=== PATIENT | male | born 1985 | race Caucasian/White ===

== ENCOUNTER 2017-05-29 09:04 | Emergency (ER) | payer OTHER ==
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
[2017-05-29] MEDS ORDERED: IBUPROFEN 600 MG TAB PO ONE ×2 (12:38→12:39)
[2017-05-29] MEDS ORDERED: HYDROCODONE/APAP 5/325 TAB PO ONE (12:38)
[2017-05-29] MEDS ORDERED: NS 1,000 ML IV ONE ×2 (13:16→13:44)
[2017-05-29 13:40] LABS: % IMMATURE GRANULYOCYTES 0.6 % (0.0-1.1); ABSOLUTE IMMATURE GRANULOCYTES 0.09 10^3/uL (0.00-0.10); ADD DIFF? NO; ADD MORPH? NO; ADD SCAN? NO; ATYPICAL LYMPHOCYTE FLAG 0 (0-99); FRAGMENT RBC FLAG 0 (0-99); HEMATOCRIT 44.3 % (40.0-51.0); HEMOGLOBIN 15.2 g/dL (13.7-17.5); LEFT SHIFT FLG 0 (0-99); LIPEMIA HEMOLYSIS FLAG 90 (0-99); MEAN CELL HEMOGLOBIN 30.1 pg (27.9-34.1); MEAN CELL HEMOGLOBIN CONCENTR. 34.3 g/dL (32.4-36.7); MEAN CELL VOLUME 87.7 fL (81.5-99.8); MEAN PLATELET VOLUME 11.1 fL (8.7-11.7); PLATELET CLUMPS FLAG 20 (0-99); PLATELET COUNT 286 10^3/uL (150-400); RED BLOOD CELL COUNT 5.05 10^6/uL (4.40-6.38); RED CELL DISTRIBUTION WIDTH 12.9 % (11.5-15.2)
[2017-05-29 13:54] LABS: ANION GAP 14 mEq/L (8-16); CALCIUM 9.1 mg/dL (8.5-10.4); CARBON DIOXIDE 23 mEq/l (22-31); CHLORIDE 107 mEq/L (97-110); GLOMERULAR FILTRATION RATE > 60; GLUCOSE 128 mg/dL (70-100); POTASSIUM 4.4 mEq/L (3.5-5.2); SODIUM 144 mEq/L (134-144)
[2017-05-29] MEDS ORDERED: KETOROLAC 15 MG/1 ML SDV IVP ONE (15:19)
--- NOTE | 2017-05-29 15:24 | CPEKG ---
Heart Rate: 55 RR Interval: 1091 P-R Interval: 136 QRSD Interval: 90 QT Interval: 468 QTC Interval: 448 P [place]: 30 QRS [place]: 92 T Wave [place]: 17 EKG Severity - BORDERLINE ECG - EKG Impression: SINUS RHYTHM EKG Impression: CONSIDER RIGHT VENTRICULAR HYPERTROPHY Electronically Signed By: Elma Alejo 30-May-2017 00:53:51
[2017-05-29 17:28] VITALS: BP 111/74; PULSE 60; RESP 12; TEMP 98.2; O2SAT 98
== END 2017-05-29 17:20 | disposition home or self-care (01) ==
DX: S42.021A Displaced fracture of shaft of right clavicle, initial encounter for closed fracture (principal); V18.0XXA Pedal cycle driver injured in noncollision transport accident in nontraffic accident, initial encounter; Y93.55 Activity, bike riding
CPT/HCPCS: 96374; J1885